=== PATIENT | male | born 1975 ===

== ENCOUNTER → 2019-07-19 | Outpatient (REF) | LOC: M LAB LCGH 15:30 | PROVIDERS: ATTEND Surgery | DX: K81.1 Chronic cholecystitis (principal) ==

== ENCOUNTER 2020-02-05 16:54 | Inpatient (IN) | payer OTHER ==
[2020-02-06] MEDS ORDERED: PANTOPRAZOLE 40MG VIAL (C9113 PER 1) ONE (09:32)
[2020-02-07] MEDS ORDERED: PANTOPRAZOLE 40MG VIAL (C9113 PER 1) As Ordered ONE (09:34)
[2020-02-08] MEDS ORDERED: PANTOPRAZOLE 40MG VIAL (C9113 PER 1) As Ordered ONE (09:45)
[2020-02-08] MEDS ORDERED: PANTOPRAZOLE 40MG TAB (PROTONIX) ONE (09:45)
[2020-02-08] MEDS ORDERED: ENOXAPARIN 40MG/0.4ML SYRINGE (J1650 PER 10MG) ONE (09:45)
[2020-02-08] MEDS ORDERED: ENOXAPARIN 40MG/0.4ML SYRINGE (J1650 PER 10MG) As Ordered ONE (09:45)
[2020-02-08] MEDS ORDERED: ZOSYN 3.375GM VIAL (J2543) As Ordered ONE ×2 (17:24→23:49)
[2020-02-08] MEDS ORDERED: ZOSYN 3.375GM VIAL (J2543) ONE ×2 (17:24→23:49)
[2020-02-09] MEDS ORDERED: ZOSYN 3.375GM VIAL (J2543) ONE ×4 (05:12→23:53)
[2020-02-09] MEDS ORDERED: ZOSYN 3.375GM VIAL (J2543) As Ordered ONE ×4 (05:12→23:53)
[2020-02-09] MEDS ORDERED: PANTOPRAZOLE 40MG VIAL (C9113 PER 1) As Ordered ONE (08:36)
[2020-02-09] MEDS ORDERED: PANTOPRAZOLE 40MG VIAL (C9113 PER 1) ONE (08:36)
[2020-02-09] MEDS ORDERED: ONDANSETRON 4MG/2ML VIAL ONE (13:00)
[2020-02-09] MEDS ORDERED: fentaNYL 100 MCG/2 ML INJECTION (J3010) ONE (13:00)
[2020-02-09] MEDS ORDERED: ROCURONIUM BROMIDE 50 MG/5 ML VIAL ONE (13:00)
[2020-02-09] MEDS ORDERED: dexameTHASONE 4 MG/ML 1ML VIAL (J1100 PER 1MG) ONE (13:00)
[2020-02-09] MEDS ORDERED: LIDOCAINE 2% 100MG/5ML SDV (FOR ANES.) ONE (13:00)
[2020-02-09] MEDS ORDERED: SUGAMMADEX SODIUM 500 MG/5 ML VIAL (BRIDION) ONE (13:00)
[2020-02-09] MEDS ORDERED: propofoL 200 MG/20 ML VIAL ONE (13:00)
[2020-02-09] MEDS ORDERED: MIDAZOLAM INJ 2MG/2ML VIAL (J2250 PER 1MG) ONE (13:00)
[2020-02-09] MEDS ORDERED: ISOVUE-300 61% 50ML VIAL As Ordered ONE (13:07)
[2020-02-09] MEDS ORDERED: SIMETHICONE 40MG/0.6ML DROPS 30ML As Ordered ONE (14:01)
[2020-02-10] MEDS ORDERED: ZOSYN 3.375GM VIAL (J2543) As Ordered ONE ×3 (05:00→16:55)
[2020-02-10] MEDS ORDERED: PANTOPRAZOLE 40MG TAB (PROTONIX) As Ordered ONE (08:36)
== END 2020-02-11 10:40 | disposition home or self-care (01) | DRG 440 ==
LOC: M ED 16:54 → M MSPAV 16:55
PROVIDERS: ADMIT Internal Medicine; ATTEND Internal Medicine
PROC: 0F798ZZ Dilation of Common Bile Duct, Via Natural or Artificial Opening Endoscopic (ICD-10-PCS; principal; 2020-02-09)
DX: K86.1 Other chronic pancreatitis (principal); K80.50 Calculus of bile duct without cholangitis or cholecystitis without obstruction; Z79.899 Other long term (current) drug therapy